=== PATIENT | female | born 1970 | race African-American/Black ===

== ENCOUNTER → 2016-04-30 | Outpatient (CLI) | payer OTHER ==
[~2016-04-30] MED LIST: ADULT LOW DOSE81 MG PO; ADVAIR 250-501 EACH INH; ADVAIR 500-501 EACH INH; ALBUTEROL INH; AMOXICILLIN 50500 M1 PO; CARDIZEM; CARISOPRODOL 3350 MG PO; COUMADIN 10MG T10 M1 PO; COUMADIN 5 MG TA5 M1 PO; DILTIAZEM ER180 M1 PO; IBUPROFEN 800800 M1 PO; JANTOVEN7.5 MG PO; LISINOPRIL-HCT1 EAC2 PO; LISINOPRIL2.5 MG; LISINOPRIL20 MG; MECLIZINE HCL25 MG PO; METHOTREXA SUBQ; METHOTREXA25 MG/1 M5 INJECTION; METHOTREXA250 MG/10 IV; METHOTREXATE; NABUMETONE 500500 M1 PO; NEXIUM40 MG PO; NORCO 5-325 TA1 EACH PO; PERCOCET 5-3251 EACH PO; PERCOCET 7.5-31 EACH PO; PHENERGAN 25 MG25 M1 PO; PREDNISONE 10 M10 M1 PO; PREDNISONE 20 M20 M1 PO; PREDNISONE 20 M20 MG PO; PRENATAL COMPL1 EACH PO; PREVACID 30MG C30 M1 PG; PROAIR HFA8.5 GM INH; REGLAN 5 MG TAB5 M1 PO; RITUXIMAB; SOMA250 MG PO; TOPAMAX100 MG PO; VALIUM5 MG PO; VITAMIN D 5050000 I1 PO; VITAMIN D400 UNI1 PO; ZOCOR 20 MG TAB20 M1; ZOCOR 20 MG TAB20 M1 PO; ZOFRAN 4 MG ORAL4 MG PO; [UNRECOGNIZED DRUG - OTHER]
== END ==
LOC: CAT 11:02
DX: J84.9 Interstitial pulmonary disease, unspecified (principal); J98.4 Other disorders of lung; R91.1 Solitary pulmonary nodule; R05 Cough

== ENCOUNTER → 2016-08-29 | Outpatient (CLI) | payer OTHER | LOC: RAD 07:03 → CAT 07:03 | DX: Z12.31 Encounter for screening mammogram for malignant neoplasm of breast (principal); R91.1 Solitary pulmonary nodule ==

== ENCOUNTER → 2016-10-30 | Outpatient (CLI) | payer OTHER | LOC: CAT 16:05 | DX: J84.10 Pulmonary fibrosis, unspecified (principal); J47.9 Bronchiectasis, uncomplicated ==

== ENCOUNTER → 2017-08-01 | Outpatient (CLI) | payer OTHER | LOC: RAD 12:00 | DX: R91.8 Other nonspecific abnormal finding of lung field (principal); R05 Cough; Z88.1 Allergy status to other antibiotic agents; Z91.040 Latex allergy status; Z88.0 Allergy status to penicillin; Z88.8 Allergy status to other drugs, medicaments and biological substances ==

== ENCOUNTER → 2017-09-16 | Outpatient (CLI) | payer OTHER | LOC: EDSTATUS 08-30 11:05 → CAT 08-30 14:05 → EDSTATUS 08-30 16:38 → CAT 08-30 16:47 | DX: R91.8 Other nonspecific abnormal finding of lung field (principal); J47.9 Bronchiectasis, uncomplicated; R91.1 Solitary pulmonary nodule ==

== ENCOUNTER → 2018-12-08 | Outpatient (CLI) | payer OTHER | LOC: RAD 14:09 | DX: J98.4 Other disorders of lung (principal); J84.9 Interstitial pulmonary disease, unspecified; Z88.0 Allergy status to penicillin; Z88.8 Allergy status to other drugs, medicaments and biological substances; Z91.040 Latex allergy status ==

== ENCOUNTER → 2019-02-24 | Outpatient (CLI) | payer OTHER | LOC: CAT 14:41 | DX: J84.9 Interstitial pulmonary disease, unspecified (principal); J47.9 Bronchiectasis, uncomplicated; Z88.0 Allergy status to penicillin; Z91.040 Latex allergy status; J84.10 Pulmonary fibrosis, unspecified ==

== ENCOUNTER → 2019-10-26 | Outpatient (CLI) | payer OTHER | LOC: CAT 11:02 | PROVIDERS: ATTEND Internal Medicine | DX: J47.9 Bronchiectasis, uncomplicated (principal); I31.3 Pericardial effusion (noninflammatory); R91.8 Other nonspecific abnormal finding of lung field; J98.4 Other disorders of lung ==

== ENCOUNTER → 2021-03-02 | Outpatient (CLI) | payer OTHER | END | disposition home or self-care (01) | LOC: CAT 11:52 | PROVIDERS: ATTEND Internal Medicine | DX: J84.9 Interstitial pulmonary disease, unspecified (principal) ==